=== PATIENT | female | born 2000 | race Caucasian/White ===

== ENCOUNTER 2021-10-30 16:54 | Inpatient (IN) | payer OTHER, BC ==
[~2021-10-30] VITALS: Ht 162.6 cm; Wt 81.9 kg
--- NOTE | 2021-10-30 18:20 | NUR ---
RT COLLECTED RAPID COVID 19 SWAB WITH NO COMPLICATIONS AT THIS TIME.
--- NOTE | 2021-10-31 06:43 | PR ---
[facility] [address], [place] [address] Signed Progress Notes IP Datetime Report Generated by CPJesus: 10/31/2021 06:43 PROGRESS NOTES: [id number] Impression: Normal Progression of Labor; Reassuring Heart Rate Procedures: Artificial ROM; Sterile Vag Exam VITAL SIGNS: [id number] Vital Signs: Reviewed VS Notable Details: HTN--not severe EXAM: [id number] Dilatation: 4.0 Effacement: 90 Station: -2 Contractions: q 1 to 2 min, mild MEMBRANES: [id number] Comments: Comfortable after epidural. Has progressed quickly in the active stage. Will begin pushing. FETUS A: [id number] FHR Baseline: 145 Variability: Moderate 6-25bpm Accelerations: 15X15 Decelerations: None FHR Category: Category I Presentation: Vertex Comments on Fetus A: No evidence of metabolic acidosis FETUS B: [id number] Signing Physician: Carisa Staples MD Copies: ~ *Electronically Signed* 10/31/21 0643 CARISA STAPLES MD PATIENT NAME: CHER REARDON PROGRESS NOTE DATE OF : 89 PHYSICIAN: CARISA STAPLES MD RPT #: [id number] REPORT IS CONFIDENTIAL AND NOT TO BE RELEASED WITHOUT AUTHORIZATION
--- NOTE | 2021-10-31 07:02 | PR ---
[facility] [address] [facility] [place], [place] [address] Signed Progress Notes IP Datetime Report Generated by PATRICK: 10/31/2021 07:02 PROGRESS NOTES: [id number] Impression: Normal Progression of Labor; Reassuring Heart Rate Other Impressions: very frequent contrractions Procedures: Artificial ROM; Sterile Vag Exam Other Procedures: subQ terb Other Plans: continue close observation VITAL SIGNS: [id number] Vital Signs: Reviewed VS Notable Details: HTN--not severe EXAM: [id number] Dilatation: 10.0 Effacement: 100 Station: -2 Contractions: q 1 to 2 min, mild MEMBRANES: [id number] Comments: Increased decels though still variability present. She is having very frequent contractions. Will give subQ terb and continue close observation. FETUS A: [id number] FHR Baseline: 145 Variability: Moderate 6-25bpm Accelerations: 15X15 Decelerations: None FHR Category: Category I Presentation: Vertex Comments on Fetus A: No evidence of metabolic acidosis FETUS B: [id number] Signing Physician: Carisa Staples MD Copies: ~ *Electronically Signed* 10/31/21701 CARISA STAPLES MD PATIENT NAME: CHER REARDON PROGRESS NOTE DATE OF : [birth year] PHYSICIAN: CARISA STAPLES MD RPT #: [id number] REPORT IS CONFIDENTIAL AND NOT TO BE RELEASED WITHOUT AUTHORIZATION
--- NOTE | 2021-10-31 07:32 | PR ---
[facility] [address] [place], [place] [address] Signed Progress Notes IP Datetime Report Generated by PATRICK: 10/31/2021 07:32 PROGRESS NOTES: [id number] Impression: Reassuring Heart Rate Other Impressions: very frequent contrractions Procedures: Artificial ROM; Sterile Vag Exam Other Procedures: subQ terb Other Plans: begin pushing VITAL SIGNS: [id number] Vital Signs: Reviewed VS Notable Details: HTN--not severe EXAM: [id number] Dilatation: 10.0 Effacement: 100 Station: -2 Contractions: q 1 to 2 min, mild MEMBRANES: [id number] Comments: status much more reassuring with mod variability and no recurrent decels following changes in position, subQ terb, and fluid bolus. Will begin pushing now. FETUS A: [id number] FHR Baseline: 145 Variability: Moderate 6-25bpm Accelerations: 15X15 Decelerations: None FHR Category: Category I Presentation: Vertex Comments on Fetus A: No evidence of metabolic acidosis FETUS B: [id number] Signing Physician: Carisa Staples MD Copies: ~ *Electronically Signed* 10/31/21731 CARISA STAPLES MD PATIENT NAME: CHER REARDON PROGRESS NOTE DATE OF : [birth year] PHYSICIAN: CARISA STAPLES MD RPT #: [id number] REPORT IS CONFIDENTIAL AND NOT TO BE RELEASED WITHOUT AUTHORIZATION
--- NOTE | 2021-11-01 08:36 | PR ---
[facility] [address] [facility] [place], [place] [address] Signed PP Progress Notes Datetime Report Generated by CPN: 11/01/2021 08:36 SUBJECTIVE: [id number] Pain: Within Normal Limits Nausea/Vomiting: Denies Vital Signs: [id number] Vital Signs: Reviewed; Within Normal Limits EXAM: Ongoing Cardiovascular: Not Done Respiratory: Not Done Abdomen/Uterus: Abnormal Lochia: Normal Vulva/Perineum: Not Done Breasts: Not Done CVA Tenderness: Not Done Extremities: Normal Incision: Not Applicable Progress: Normal Exam Comments: Fundus firm, NT @ U-1 H/H 10.6/32.2, WBC 12.9, plat 196k IMPRESSION/PLAN/PROCEDURES: [id number] Impression: Normal Progression; Induced Hypertension Other Impression: anemia Plan: Discharge Procedures: None Progress Notes: Doing well. Her BPs are still elevated but have not been sustained in the severe range. I think she can be discharged today with close f/u over the next few days. Signing Physician: Carisa Staples MD Copies: ~ *Electronically Signed* 11/01/21 0836 CARISA STAPLES MD PATIENT NAME: CHER REARDON PROGRESS NOTE DATE OF : 98 PHYSICIAN: CARISA STAPLES MD RPT #: [id number] REPORT IS CONFIDENTIAL AND NOT TO BE RELEASED WITHOUT AUTHORIZATION
== END 2021-11-01 11:43 | disposition home or self-care (01) | DRG 807 ==
LOC: FBCO 16:54 → FBC 17:33
PROVIDERS: ADMIT Obstetrics & Gynecology; ATTEND Obstetrics & Gynecology
PROC: 10E0XZZ Delivery of Products of Conception, External Approach (ICD-10-PCS; principal; 2021-10-31)
PROC: 3E0R3BZ Introduction of Anesthetic Agent into Spinal Canal, Percutaneous Approach (ICD-10-PCS; 2021-10-31)
PROC: 00HU33Z Insertion of Infusion Device into Spinal Canal, Percutaneous Approach (ICD-10-PCS; 2021-10-31)
PROC: 0UQMXZZ Repair Vulva, External Approach (ICD-10-PCS; 2021-10-31)
PROC: 10907ZC Drainage of Amniotic Fluid, Therapeutic from Products of Conception, Via Natural or Artificial Opening (ICD-10-PCS; 2021-10-31)
DX: O13.4 Gestational [pregnancy-induced] hypertension without significant proteinuria, complicating childbirth (principal); Z37.1 Single stillbirth; O76 Abnormality in fetal heart rate and rhythm complicating labor and delivery; Z3A.31 31 weeks gestation of pregnancy; Z88.0 Allergy status to penicillin; Z20.822 Contact with and (suspected) exposure to COVID-19; O70.0 First degree perineal laceration during delivery; Z88.8 Allergy status to other drugs, medicaments and biological substances; Z79.899 Other long term (current) drug therapy
CPT/HCPCS: 01960; 36415; 82565; 82570; 84156; 84450; 84520; 84550; 85025; 85027; 86850; 86900; 86901; A9270; C9803; J0690; J2590; J2795; J3010; J3105; J7121; U0003